=== PATIENT | female | born 2000 | race Caucasian/White ===

== ENCOUNTER 2023-08-29 14:03 | Emergency (ER) | payer SELFPAY ==
[2023-08-29 15:03] LABS: #Basophils 0.04 10x3/uL (0.0-0.2); %Basophils 0.5 % (0.0-1.0); %Eosinophils 1.2 % (0.0-10.0); %Lymphocytes 30.3 % (21.0-51.0); %Monocytes 6.5 % (0.0-10.0); %Neutrophils 61.3 % (42.0-75.0); Hematocrit 37.3 % (36.0-47.0); Hemoglobin 12.5 g/dL (12.0-16.0); Mean Corpuscular HGB CONC 33.5 g/dL (32.0-36.0); Mean Corpuscular Hemoglobin 28.2 pg (27.0-31.0); Mean Corpuscular Volume 84.2 fL (78.0-98.0); Mean Platelet Volume 9.3 fL (7.4-10.4); Platelet Count 327 10x3/uL (130-400); RBC Distribution Width 12.2 % (11.5-14.5); Red Blood Cell (RBC) Count 4.43 mill/uL (4.20-5.40)
[2023-08-29] MEDS ORDERED: Piperacillin/Tazobactam 3.375 GM VIAL ONE (15:08)
[2023-08-29 15:13] LABS: BHCG - Serum Negative (NEGATIVE); Pregs Control Bar Appear? YES (CONTROL BAR)
[2023-08-29 15:24] LABS: Globulin 3.8 g/dL (2.4-3.5)
[2023-08-29 15:29] LABS: ALT (SGPT) 29 U/L (8-55); AST (SGOT) 76 U/L (5-34); Albumin 3.6 g/dL (3.5-5.0); Alkaline Phosphatase 58 U/L (40-110); Anion Gap 13 mmol/L (10-20); BUN (Urea Nitrogen) 7 mg/dL (7.0-18.7); Bilirubin, Total 0.4 mg/dL (0.2-1.2); Calc. Creatinine Clearance 0 mL/min (70-130); Calcium 9.5 mg/dL (7.8-10.44); Carbon Dioxide 24 mmol/L (22-29); Chloride 108 mmol/L (98-107); Estimated GFR 118; Glucose 98 mg/dL (70-105); Lipase 23 U/L (8-78); Potassium 3.9 mmol/L (3.5-5.1); Protein, Total 7.4 g/dL (6.0-8.3); Sodium 141 mmol/L (136-145)
[2023-08-29 16:38] LABS: Bilirubin Negative (Negative); Blood, Urine Negative (Negative); CAUTI Indications for Culture Fever or rigors; Clarity Clear (Clear); Glucose, Urine (Dipstick) Normal (Negative); Ketone, Urine Negative (Negative); Leukocyte 250 Leu/uL (Negative); Nitrite Negative (Negative); Protein, Urine (Dipstick) Negative (Neg-Trace); RBC/HPF 0-3 HPF (0-3); Specific Gravity, Urine 1.007 (1.002-1.036); Urobilinogen Normal mg/dL (Less than 2); WBC/HPF 0-3 HPF (0-3)
[2023-08-29 16:39] LABS: Bacteria/HPF 1+ HPF (None Seen); Urine Culture Reflex No No
[2023-08-29 17:04] LABS: Pregs Control Background? CLEAR/WHITE (CLR/WHITE)
[2023-08-29] MEDS ORDERED: EPINEPHrine 1 MG/ML VIAL ONE (17:17)
[2023-08-29] MEDS ORDERED: Bupivacaine 0.25% HCL 30 ML VIAL ONE (17:17)
[2023-08-29] MEDS ORDERED: SUCCINYLCHOLINE/SOD CL,ISO/PF 200 MG/10 ML SYRINGE FS ONE (17:42)
[2023-08-29] MEDS ORDERED: fentaNYL PF 100 MCG/2 ML SYRINGE ONE (17:42)
[2023-08-29] MEDS ORDERED: PROPOFOL 20 ML ONE (17:42)
[2023-08-29] MEDS ORDERED: Midazolam HCl 2 mg/2 ml Vial ONE (17:44)
[2023-08-29] MEDS ORDERED: MINERAL OIL/WHITE PETROLATUM 3.5 GM TUBE ONE (17:48)
[2023-08-29] MEDS ORDERED: Rocuronium Bromide 10 MG/ML (10ML VIAL) ONE (17:58)
[2023-08-29] MEDS ORDERED: Ketorolac Tromethamine 30 MG (1 mL) VIAL ONE (18:07)
[2023-08-29] MEDS ORDERED: NEOSTIGMINE 3 MG/3 ML SYR 3 MG/3 ML SYRINGE ONE (18:10)
[2023-08-29] MEDS ORDERED: Glycopyrrolate 0.2 MG/ML 5 ML SYRINGE ONE (18:10)
[2023-08-29] MEDS ORDERED: Metoclopramide HCl 10 MG (2 mL) VIAL ONE (18:10)
[2023-08-29] MEDS ORDERED: Ondansetron PF 4 MG/2 ML Vial ONE (18:10)
[2023-08-29] MEDS ORDERED: fentaNYL 50 mcg/mL 1 mL Vial ONE (18:51)
== END 2023-08-29 15:57 | disposition admitted as inpatient to this hospital (09) ==
LOC: ERS 14:03
PROC: 0DTJ4ZZ Resection of Appendix, Percutaneous Endoscopic Approach (ICD-10-PCS; principal; 2023-08-29)
DX: E06.3 Autoimmune thyroiditis (principal); Z79.890 Hormone replacement therapy
CPT/HCPCS: 36415; 80053; 81001; 83605; 83690; 84703; 85025; 87040; 88304; 96374; A4314; A4649; C1776; J0171; J0665; J1885; J2250; J2405; J2543; J2704; J2765; J3010